=== PATIENT | female | born 1985 | race Caucasian/White ===

== ENCOUNTER 2022-08-22 16:10 | Emergency (ER) | payer MEDICAID ==
[~2022-08-22] VITALS: Ht 152.4 cm; Wt 52.2 kg
[2022-08-22 16:15] VITALS: BP_SYST 107
--- NOTE | 2022-08-22 16:16 | NUR ---
RECEIVED PT FROM [facility]. PT ANA MARTELL FOR C/O N/V, DIZZINESS, LEFT SIDED WEAKNESS. PT TAKEN DIRECTLY TO CT SCAN AND CODE STROKE CALLED AT THIS TIME. PT IS AAOX4, SLOW TO SPEAK. C/O NAUSEA, DIZZINESS, LEFT SIDED NUMBNESS. 18G IV CATH IN PLACE TO [facility], SITE WNL.
--- NOTE | 2022-08-22 16:28 | NUR ---
PT BACK FROM CT SCAN AND PLACED ON MONITOR.
--- NOTE | 2022-08-22 16:29 | NUR ---
BS 102
[2022-08-22] MEDS ORDERED: ONDANSETRON HCL 4 MG/2 ML VIAL ONE (16:40)
[2022-08-22] MEDS ORDERED: ONDANSETRON HCL 4 MG/2 ML VIAL IVP ONE (16:45)
--- NOTE | 2022-08-22 16:45 | NUR ---
zofran 4mg ivp given for nausea. -
--- NOTE | 2022-08-22 16:50 | NUR ---
PT TAKEN FOR CTA.
[2022-08-22 17:02] LABS: BASOPHILS % (AUTO) 0.6 % (0.0-2.0); EOSINOPHILS % (AUTO) 0.2 % (0.0-4.0); HEMATOCRIT 32.3 % (36-48); HEMOGLOBIN 10.8 g/dL (12.0-16.0); LYMPHOCYTES # (AUTO) 1.7 K/uL (1.0-5.5); LYMPHOCYTES % (AUTO) 24.4 % (20.5-51.5); MEAN CORPUSCULAR HEMOGLOBIN 28 pg (27-31); MEAN CORPUSCULAR HGB CONC 34 % (32-36); MEAN CORPUSCULAR VOLUME 83 fL (79.0-98.0); MONOCYTES # (AUTO) 0.7 K/uL (0.0-1.0); MONOCYTES % (AUTO) 10.1 % (1.7-9.3); NEUTROPHILS # (AUTO) 4.6 K/uL (1.8-7.7); NEUTROPHILS % (AUTO) 64.7 % (40.0-70.0); PLATELET COUNT (AUTO) 532 K/uL (130-430); WHITE BLOOD COUNT (AUTO) 7.1 K/uL (4.8-10.8)
--- NOTE | 2022-08-22 17:03 | NUR ---
PT BACK FROM CTA AND PLACED ON MONITOR, INITIATING EKG AT THIS TIME.
[2022-08-22 17:09] LABS: ANION GAP 10 (5-15); CALCIUM 8.5 mg/dL (8.4-11.0); CHLORIDE 102 mmol/L (98-107); CREATININE 0.66 mg/dL (0.55-1.30); GFR AFRICAN AMERICAN 129 mL/min (>90); GLUCOSE 109 mg/dL (70-99); UREA NITROGEN, BLOOD 9 mg/dL (8-21)
[2022-08-22 17:11] LABS: INR 1.1 (0.8-1.2)
[2022-08-22 17:16] LABS: ALANINE AMINOTRANSFERASE 16 U/L (12-78); ALBUMIN 3.8 g/dL (3.4-4.8); ASPARTATE AMINOTRANSFERASE 13 U/L (10-37); CHOLESTEROL 146 mg/dL (<200); TOTAL BILIRUBIN 0.4 mg/dL (0.0-1.0)
[2022-08-22] MEDS ORDERED: ASPIRIN 81 MG TABLET(ECOTRIN) PO ONE (17:45)
[2022-08-22] MEDS ORDERED: METOCLOPRAMIDE HCL 10 MG/2 ML VIAL IVP ONE (17:45)
[2022-08-22] MEDS ORDERED: DIPHENHYDRAMINE INJ 50 MG/ML VIAL IVP ONE (17:45)
[2022-08-22] MEDS ORDERED: KETOROLAC TROMETHAMINE 15 MG VIAL IVP ONE (17:45)
--- NOTE | 2022-08-22 17:52 | NUR ---
NEUROLOGIST TELE-CONSULT AT THIS TIME.
--- NOTE | 2022-08-22 18:08 | NUR ---
REGLAN IVP GIVEN, BENEDRYL IVP GIVEN, TORADOL 15MG IVP GIVEN, ASA 162MG PO GIVEN.
[2022-08-22 18:58] LABS: BARBITURATE, URINE NEGATIVE (NEG <=200); BENZODIAZEPINE, URINE NEGATIVE (NEG <=150); CANNABINOID, URINE NEGATIVE (NEG <=50); COCAINE, URINE NEGATIVE (NEG <=150); METHAMPHETAMINES SCREEN,URINE NEGATIVE (NEG <=500); OPIATE, URINE NEGATIVE (NEG <=100); PHENCYCLIDINE SCREEN,URINE NEGATIVE (NEG <=25); UR TRICYCLIC ANTIDEPRESSANTS NEGATIVE (NEG <=300); URINE AMPHETAMINE NEGATIVE (NEG <=500); URINE METHADONE NEGATIVE (NEG <=200); URINE OXYCODONE SCREEN NEGATIVE (NEG <=100); URINE PROPOXYPHENE SCREEN NEGATIVE (NEG <=300)
[2022-08-22] MEDS ORDERED: NACL 0.9% 1,000 ML IV ONE (19:15)
[2022-08-22] MEDS ORDERED: MECLIZINE HCL 25 MG TABLET (ANITVERT) PO ONE (19:15)
--- NOTE | 2022-08-22 19:26 | NUR ---
ENDORSED PT TO [facility]. ALL QUESTIONS AND CONCERNS ADDRESSED.
--- NOTE | 2022-08-22 19:26 | NUR ---
URINE OBTAINED AND TAKEN TO LAB.
[2022-08-22] MEDS ORDERED: POTASSIUM CHLORIDE 20 MEQ TAB.PRT.SR PO ONE (19:45)
--- NOTE | 2022-08-22 19:45 | NUR ---
MD IN ROOM TALK TO PATIENT AND EXPLAINED HER CONDITION AND SHES FOR DISCHARGE AFTER IVF RUNNING.
[2022-08-22] MEDS ORDERED: ONDA-8 TL (19:59)
[2022-08-22] MEDS ORDERED: ASPI-1393 PO (19:59)
[2022-08-22] MEDS ORDERED: MECL-108 PO (19:59)
[2022-08-22 20:24] VITALS: BP_SYST 105
--- NOTE | 2022-08-22 20:29 | NUR ---
Patient given written and verbal discharge instructions and verbalizes understanding. ER MD CLAYTON discussed with patient the results and treatment provided. Patient in stable condition. ID arm band removed. IV catheter removed intact and dressing applied, no active bleeding. Rx of given. Patient educated on pain management and to follow up with PMD. Pain Scale-0 . Opportunity for questions provided and answered. Medication side effect fact sheet provided.
== END 2022-08-22 20:24 | disposition home or self-care (01) ==
LOC: SED 16:10
DX: G45.9 Transient cerebral ischemic attack, unspecified (principal); R51.9 Headache, unspecified; R53.1 Weakness; Z79.899 Other long term (current) drug therapy
CPT/HCPCS: 99285; 70496; 96374; 96375; 71045; 96361; 82465; 80307; 80053; 82962; 85025; 85610; 85730; 86886; 86900; 86901; 84484; 36415; 70498; 70450; 76376; J8597; J1200; J1885; J2765; J2405; Q9967; J7030